=== PATIENT | male | born 1925 | race Caucasian/White ===

== ENCOUNTER → 2016-04-29 | Outpatient (CLI) | payer OTHER | LOC: BHFA 10:00 | PROVIDERS: ATTEND Internal Medicine Cardiovascular Disease | DX: R01.1 Cardiac murmur, unspecified (principal) ==

== ENCOUNTER 2017-05-13 02:33 | Observation (INO) | payer OTHER ==
--- NOTE | 2017-05-13 02:50 | EDPHY ---
H & P Time Seen by Provider: 05/13/17 02:46 HPI/ROS: Chief Complaint: Shortness of breath, cough HPI: 89-year-old male presenting with worsening shortness of breath over the last several days. Symptoms started when his had viral upper respiratory type symptoms. She was started on azithromycin several days ago. Patient started taking azithromycin 2 days ago but has been having worsening cough and difficulty breathing. He has a history of coronary artery disease and does take Lasix as needed for swelling. has noticed increased leg swelling for the last several days. This morning his breathing got worsening called EMS. On arrival patient was noted to have diffuse expiratory wheezing. EMS gave him an albuterol neb. Denies any fevers or chills. No chest pain. ROS: 10 point Review of Systems is negative except as noted in the HPI. PMH: Coronary artery disease, likely CHF Social History: No smoking, no alcohol, no recreational drug use Family History: non-contributory Physical Exam: Gen: Awake, Alert, No Distress HEENT: Nose: no rhinorrhea Eyes: PERRLA, EOMI Mouth: Moist mucosa Neck: Supple, no JVD Chest: nontender, mild diffuse expiratory wheeze with by basilar crackles Heart: S1, S2 normal, no murmur Abd: Soft, non-tender, no guarding Back: no CVA tenderness, no midline tenderness Ext: 2+ pitting edema, non-tender Skin: no rash Neuro: CN II-XII intact, Sensation grossly intact, Strength 5/5 in bilateral upper and lower extremities - Personal History Tetanus Vaccine Date: > 5 years - Medical/Surgical History Hx Asthma: No Hx Chronic Respiratory Disease: No Hx Diabetes: No Hx Cardiac Disease: Yes Hx Renal Disease: No Hx Cirrhosis: No Hx Alcoholism: No Hx HIV/AIDS: No Hx Splenectomy or Spleen Trauma: No Other PMH: HX: HAVASUPAI, STROKE, CARDIAC STENTS, SDH, HTN - Social History Smoking Status: Former smoker Constitutional: Initial Vital Signs Temperature (C) 37.7 C 05/13/17 02:40 Heart Rate 77 05/13/17 02:40 Respiratory Rate 24 H 05/13/17 02:40 Blood Pressure 171/75 H 05/13/17 02:40 O2 Sat (%) 99 05/13/17 02:40 O2 Delivery Mode Non-Rebreather Mask Allergies/Adverse Reactions: No Known Allergies Allergy (Unverified 05/13/17 03:03) Home Medications: Medication Instructions Recorded Propranolol Sr [Inderal LA 60mg 60 mg PO HS 06/29/13 (*)] busPIRone [Buspar (*)] 10 mg PO HS 06/29/13 Aspirin EC [Aspirin EC 325 mg (*)] 325 mg PO DAILY 07/20/13 Clopidogrel Bisulfate [Clopidogrel] 75 mg PO DAILY18 07/20/13 Multivitamins [Multivitamin (*)] 1 each PO DAILY18 07/20/13 Propranolol HCl [Inderal 10mg (*)] 5 mg PO DAILY PRN 07/20/13 cycloSPORINE 0.05% [Restasis Opht 1 drop EACHEYE BID@,07/20/13 Drops(*)] Acetaminophen [Tylenol ES 500 mg 500 mg PO Q6@04,,16,09/21/14 (*)] Elvis-128 5% Eyedrop 1 drop LEFTEYE BID@10,09/21/14 Ranibizumab [Lucentis] 0.5 mg IO Q30D 09/21/14 amLODIPine BESYLATE [Norvasc 5 mg 5 mg PO DAILY18 09/21/14 (*)] busPIRone [Buspar (*)] 5 mg PO DAILY PRN 09/21/14 traMADol [Ultram 50 mg (*)] 50 mg PO Q6@04,10,16,09/21/14 Eliquis 2.5 mg PO BID 02/02/16 Medical Decision Making - Diagnostics EKG Interpretation: ECG time 2:55 a.m., atrial fibrillation with a ventricular rate of 85, mild ST elevation in V2 which is not contiguous. No other acute ischemic changes. ED Course/Re-evaluation: 89-year-old presenting congestive heart failure. Chest x-ray is consistent with this. BNP is 6000. I have given 40 mg of Lasix IV. Will admit to the hospitalist for further evaluation. - Data Points Laboratory Results: Laboratory Results 05/13/17 02:45 05/13/17 02:45 05/13/17 05/13/17 02:45 02:45 WBC 4.57 10^3/uL 10^3/uL (3.80-9.50) RBC 3.44 10^6/uL L 10^6/uL (4.40-6.38) Hgb 10.8 g/dL L g/dL (13.7-17.5) Hct 32.6 % L % (40.0-51.0) MCV 94.8 fL fL (81.5-99.8) MCH 31.4 pg pg (27.9-34.1) MCHC 33.1 g/dL g/dL (32.4-36.7) RDW 13.9 % % (11.5-15.2) Plt Count 149 10^3/uL L 10^3/uL (150-400) MPV 10.1 fL fL (8.7-11.7) Neut % (Auto) 78.4 % H % (39.3-74.2) Lymph % (Auto) 10.3 % L % (15.0-45.0) [place] % (Auto) 10.3 % % (4.5-13.0) Eos % (Auto) 0.2 % L % (0.6-7.6) Baso % (Auto) 0.4 % % (0.3-1.7) Nucleat RBC Rel Count 0.0 % % (0.0-0.2) Absolute Neuts (auto) 3.58 10^3/uL 10^3/uL (1.70-6.50) Absolute Lymphs (auto) 0.47 10^3/uL L 10^3/uL (1.00-3.00) Absolute Monos (auto) 0.47 10^3/uL 10^3/uL (0.30-0.80) Absolute Eos (auto) 0.01 10^3/uL L 10^3/uL (0.03-0.40) Absolute Basos (auto) 0.02 10^3/uL 10^3/uL (0.02-0.10) Absolute Nucleated RBC 0.00 10^3/uL 10^3/uL (0-0.01) Immature Gran % 0.4 % % (0.0-1.1) Immature Gran # 0.02 10^3/uL 10^3/uL (0.00-0.10) Sodium 141 mEq/L mEq/L (135-145) Potassium 4.3 mEq/L mEq/L (3.5-5.2) Chloride 103 mEq/L mEq/L (97-110) Carbon Dioxide 22 mEq/l mEq/l (22-31) Anion Gap 16 mEq/L mEq/L (8-16) BUN 26 mg/dL H mg/dL (7-23) Creatinine 1.1 mg/dL mg/dL (0.7-1.3) Estimated GFR > 60 Glucose 91 mg/dL mg/dL (70-100) Calcium 9.0 mg/dL mg/dL (8.5-10.4) Troponin I 0.020 ng/mL ng/mL (0.000-0.034) NT-Pro-B Natriuret Pep 5900 pg/mL H pg/mL (0-450) Departure - Departure Disposition: [facility] Inpatient Acute Clinical Impression: Acute exacerbation of congestive heart failure Condition: Fair Referrals: Patient,NotPresent [Primary Care Provider] - As per Instructions
[2017-05-13 02:55] LABS: PLATELET COUNT 149 10^3/uL (150-400)
--- NOTE | 2017-05-13 02:58 | CPEKG ---
Heart Rate: 85 RR Interval: 706 QRSD Interval: 88 QT Interval: 376 QTC Interval: 447 QRS Independence: -28 T Wave Independence: 77 EKG Severity - ABNORMAL ECG - EKG Impression: ATRIAL FIBRILLATION EKG Impression: BORDERLINE LEFT AXIS DEVIATION EKG Impression: CONSIDER ANTEROSEPTAL INFARCT Electronically Signed By: Tae Mccollum 13-May-2017 05:07:18
[2017-05-13] MEDS ORDERED: FUROSEMIDE 40 MG/4 ML VIAL IVP ONE (03:21)
[2017-05-13] MEDS ORDERED: ACETAMINOPHEN 325 MG TAB PO PRN (03:31)
[2017-05-13] MEDS ORDERED: ONDANSETRON DISINTEGRATING 4 MG TAB PO PRN (03:31)
[2017-05-13] MEDS ORDERED: ONDANSETRON 4 MG/2 ML VIAL IVP PRN (03:31)
[2017-05-13] MEDS ORDERED: ALBUTEROL 3 ML DEYVIAL IH PRN (03:49)
--- NOTE | 2017-05-13 04:06 | PDGENHP ---
History and Physical - Chief Complaint Shortness of breath - History of Present Illness 89 yo M w/ hx of CAD, AF, CVA, and HTN presents with shortness of breath. Patient first began to feel fatigued about 5 days prior to presentation. His had a significant URI during this period. 2 days prior to presentation he noticed wheezing and developing shortness of breath. Additionally, he complains of congestion and low grade fever (100.1). He denies orthopnea or increased leg swelling. We was started on azithromycin yesterday but presented to ED today due to progressive shortness of breath. Work-up in the ED notable for normal WBC, elevated BNP, and CXR with mild pulmonary edema. Patient is being admitted for further work-up and treatment. History Information - Allergies/Home Medication List Allergies/Adverse Reactions: No Known Allergies Allergy (Unverified 05/13/17 03:03) Home Medications: Propranolol Sr [Inderal LA 60mg (*)] 60 mg PO HS 06/29/13 [Last Taken 02/01/16 23:00] busPIRone [Buspar (*)] 10 mg PO HS 06/29/13 [Last Taken 02/01/16 23:00] Aspirin EC [Aspirin EC 325 mg (*)] 325 mg PO DAILY 07/20/13 [Last Taken 23:00] Clopidogrel Bisulfate [Clopidogrel] 75 mg PO DAILY18 07/20/13 [Last Taken 23:00] Multivitamins [Multivitamin (*)] 1 each PO DAILY18 07/20/13 [Last Taken 09/19/14 ] Propranolol HCl [Inderal 10mg (*)] 5 mg PO DAILY PRN 07/20/13 [Last Taken 06:00] cycloSPORINE 0.05% [Restasis Opht Drops(*)] 1 drop EACHEYE BID@,07/20/13 [ Last Taken 02/01/16 23:00] Acetaminophen [Tylenol ES 500 mg (*)] 500 mg PO Q6@04,,,09/21/14 [Last Taken 02/01/16 23:00] Elvis-128 5% Eyedrop 1 drop LEFTEYE BID@,09/21/14 [Last Taken 02/01/16 23:00 ] Ranibizumab [Lucentis] 0.5 mg IO Q30D 09/21/14 [Last Taken 12/14/15 10:00] amLODIPine BESYLATE [Norvasc 5 mg (*)] 5 mg PO DAILY18 09/21/14 [Last Taken 07/12 20:00] busPIRone [Buspar (*)] 5 mg PO DAILY PRN 09/21/14 [Last Taken 01/26/16 12:00] traMADol [Ultram 50 mg (*)] 50 mg PO Q6@04,10,16,22 09/21/14 [Last Taken 23:00] Eliquis 2.5 mg PO BID 02/02/16 [Last Taken 02/02/16 12:00] I have personally reviewed and updated: family history, medical history - Past Medical History atrial fibrillation, coronary artery disease, CVA, hypertension - Surgical History Reports: coronary stent - Family History Positive for: stroke - Social History Smoking Status: Former smoker Review of Systems Review of Systems: ROS: 10pt was reviewed & negative except for what was stated in HPI & below Physical Exam Physical Exam: Temp Pulse Resp BP Pulse Ox 37.7 C 87 20 171/75 H 93 05/13/17 02:40 05/13/17 03:31 05/13/17 03:31 05/13/17 02:40 05/13/17 03:31 O2 (L/minute) 4 Constitutional: no apparent distress, not in pain Eyes: PERRL, EOMI Ears, Nose, Mouth, Throat: moist mucous membranes, no oral mucosal ulcers Cardiovascular: regular rate and rhythym, systolic murmur, JVD (JVP 1 cm above clavicle at 45 degrees), edema (1+ b/l AARTI) Respiratory: no respiratory distress, expiratory wheeze (Mild, end expiratory), inspiratory crackles (Bibasilar) Skin: warm, normal color Musculoskeletal: full muscle strength, no muscle tenderness Neurologic: AAOx3, CN II-XII Intact Psychiatric: interacting appropriately, not anxious Lab Data & Imaging Review 05/13/17 02:45 05/13/17 02:45 WBC 4.57 10^3/uL (3.80-9.50) 05/13/17 02:45 RBC 3.44 10^6/uL (4.40-6.38) L 03/17/18 02:45 Hgb 10.8 g/dL (13.7-17.5) L 05/13/17 02:45 Hct 32.6 % (40.0-51.0) L 05/13/17 02:45 MCV 94.8 fL (81.5-99.8) 05/13/17 02:45 MCH 31.4 pg (27.9-34.1) 05/13/17 02:45 MCHC 33.1 g/dL (32.4-36.7) 05/13/17 02:45 RDW 13.9 % (11.5-15.2) 05/13/17 02:45 Plt Count 149 10^3/uL (150-400) L 05/13/17 02:45 MPV 10.1 fL (8.7-11.7) 05/13/17 02:45 Neut % (Auto) 78.4 % (39.3-74.2) H 05/13/17 02:45 Lymph % (Auto) 10.3 % (15.0-45.0) L 05/13/17 02:45 [place] % (Auto) 10.3 % (4.5-13.0) 05/13/17 02:45 Eos % (Auto) 0.2 % (0.6-7.6) L 05/13/17 02:45 Baso % (Auto) 0.4 % (0.3-1.7) 05/13/17 02:45 Nucleat RBC Rel Count 0.0 % (0.0-0.2) 05/13/17 02:45 Absolute Neuts (auto) 3.58 10^3/uL (1.70-6.50) 05/13/17 02:45 Absolute Lymphs (auto) 0.47 10^3/uL (1.00-3.00) L 05/13/17 02:45 Absolute Monos (auto) 0.47 10^3/uL (0.30-0.80) 05/13/17 02:45 Absolute Eos (auto) 0.01 10^3/uL (0.03-0.40) L 05/13/17 02:45 Absolute Basos (auto) 0.02 10^3/uL (0.02-0.10) 05/13/17 02:45 Absolute Nucleated RBC 0.00 10^3/uL (0-0.01) 05/13/17 02:45 Immature Gran % 0.4 % (0.0-1.1) 05/13/17 02:45 Immature Gran # 0.02 10^3/uL (0.00-0.10) 05/13/17 02:45 Sodium 141 mEq/L (135-145) 05/13/17 02:45 Potassium 4.3 mEq/L (3.5-5.2) 05/13/17 02:45 Chloride 103 mEq/L (97-110) 05/13/17 02:45 Carbon Dioxide 22 mEq/l (22-31) 05/13/17 02:45 Anion Gap 16 mEq/L (8-16) 05/13/17 02:45 BUN 26 mg/dL (7-23) H 05/13/17 02:45 Creatinine 1.1 mg/dL (0.7-1.3) 05/13/17 02:45 Estimated GFR > 60 05/13/17 02:45 Glucose 91 mg/dL (70-100) 05/13/17 02:45 Calcium 9.0 mg/dL (8.5-10.4) 05/13/17 02:45 Troponin I 0.020 ng/mL (0.000-0.034) 05/13/17 02:45 NT-Pro-B Natriuret Pep 5900 pg/mL (0-450) H 05/13/17 02:45 Visualized and Interpreted Chest x-ray results: Yes Chest X-Ray results: other (Mild pulmonary edema) Visualized and Interpreted EKG results: Yes EKG Interpretation: Positive for: other (Afib, Q waves in anteroseptal leads) Assessment & Plan Assessment: 89 yo M w/ hx of CAD, AF, CVA, and HTN presents with shortness of breath likely from viral infection leading to mild CHF exacerbation. Plan: 1. Shortness of breath - I suspect this is multifactorial from viral URI ( wheezing on exam, congestion, and low grade fever on history) and mild volume overload (elevated BNP, pulmonary edema on CXR). WBC WNL, no evidence of sepsis physiology currently. - Albuterol PRN - Respiratory PCR, procalcitonin - Cardiac treatment as below 2. Suspected acute CHF exacerbation - Likely diastolic dysfunction in this 89 yo M w/ hx of CAD, AF , and HTN. BNP elevated and CXR with pulmonary congestion/ pulmonary edema. I suspect this mild exacerbation was triggered by viral infection detailed above. Patient does not take diuretics as outpatient and has no prior formal diagnosis of CHF. RAHEEL performed in 2015 revealed normal EF but did not comment on diastolic function. - S/p furosemide 40 mg IV x1 in ED - Will continue 20 mg IV BID as patient is essential furosemide naive - Cardiac diet, monitor I/Os, daily weights - TTE for further evaluation 3. AHRF - 2/2 likely viral URI and superimposed CHF exacerbation. Treatment for both as above. - Incentive spirometry, wean O2 as able 4. Hx CAD - Received cardiac stents by Dr. White in 2013. On ASA and plavix as outpatient; no chest pain currently. 5. Hx AF - In AF on admission, no longer taking AC. 6. Hx HTN - On amlodipine as outpatient. 7. 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 Diet - Cardiac Code - Full Ppx - LMWH Dispo - Admit under observation status to PCU
[2017-05-13] MEDS: ENOXAPARIN 40 MG/0.4 ML SYR SC SCH (09:29)
--- NOTE | 2017-05-13 11:05 | ECHO ---
[email or web address] [address] [address] Main: [phone] Fax: Transthoracic Echocardiogram Name: YASIR CHO MR#: [id number] Study Date: 05/13/2017 Study Time: 10:17 AM Date of : 1925 Age: 89 year(s) Height: 152.4 cm (60 in.) Weight: 69.85 kg (154 lb.) BSA: 1.67 m2 Gender: Male Examination: Echo Indication: CHF Image Quality: Adequate Contrast: Requested by: Artis Lizarraga BP: / Heart Rate: Rhythm: Indication: CHF Procedure Staff Online Retailer: Ronit Mckeon [facility] Reading Physician: Vic Crespo MD Requesting Provider: Conclusions: 1)Atrial fibrillation. 2)Normal LV size and systolic function with a LVEF of 65% and normal wall motions. 3)Moderate concentric LVH noted. 4)Moderate left atrial enlargement noted. 5)Moderate aortic valve sclerosis without . Trivial to mild AI noted. 6)Moderate MR without MV prolapse. 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 Measurements: Chambers Valvular Assessment AV/MV Valvular Assessment TV/PV Normal Normal Normal Name Value Range Name Value Range Name Value Range Ao Evelia (MM): 3.3 cm (2.2 cm-3.7 AV Vmax: 2.17 m/s (1 m/s-1.7 TR Vmax: 3.27 mm/s ( - ) cm) m/s) TR PGmax: 43 mmHg ( - ) IVSd (2D): 1.6 cm (0.6 cm-1.1 AV maxP mmHg ( - ) syst. PAP: 48 mmHg ( - ) cm) AV meanP mmHg ( - ) PV Vmax: 1.39 m/s (0.6 m/s-0.9 LVDd (2D): 3.8 cm (4.2 cm-5.9 LVOT Vmax: 1.27 m/s (0.7 m/s-1.1 m/s) cm) m/s) PV PGmax: 8 mmHg ( - ) LVDs (2D): 2.4 cm (2.1 cm-4 LALITA (Vmax): 1.8 cm2 ( - ) cm) LALITA (VTI): 1.9 cm ( - ) LVPWd (2D): 1.0 cm (0.6 cm-1 MV E Vmax: 1.24 m/s ( - ) cm) LVOTd 2.0 cm 2.0 cm mm LVEF (BP): 65 % (>=55 %) RVDd(2D): 2.7 cm (1.9 cm-3.8 cmmm) Continued Measurements: Chambers Valvular Assessment TV/PV Patient: YASIR CHO Study Date: 05/13/2017 Page 1 of 2 10:17 AM Name Value Name Value LADs: 4.5 cm CVP (est.): 5 mmHg LADs Lon.1 cm LA Area: 28.4 cm2 LA Volume: 91 ml LA Volume Index: 54.5 ml/m2 RA Area: 10.0 cm2 Findings: Left Ventricle: Normal size left ventricle. Moderate concentric LV hypertrophy. Normal global systolic LV function. EF is 65 %. No regional wall motion abnormality. Unable to assess diastolic dysfunction. Right Ventricle: Normal size right ventricle. Normal RV function. Left Atrium: The left atrium is moderately dilated. Right Atrium: The right atrium is normal in size. Mitral Valve: The mitral valve is normal in appearance and function. Mild-moderate mitral annular calcification. There is mild thickening of the mitral valve leaflets. No mitral stenosis is present. Moderate mitral valve regurgitation is present. Aortic Valve: The aortic valve is tri-leaflet and functions normally. Mild aortic cusp calcification is noted. Mean aortic valve gradient 12. Trivial calcific aortic valve stenosis. Trivial aortic valve regurgitation. Tricuspid Valve: The tricuspid valve is normal in appearance and function. Mild tricuspid regurgitation is present. Right ventricular systolic pressure measures 48mmHg. The pulmonary artery pressure is moderately increased. Pulmonic Valve: The pulmonic valve is normal in appearance and function. There is no pulmonic regurgitation seen. Aorta: The aorta is normal. Normal size aortic root measuring 3.3 cm. Pericardium: Trivial pericardial effusion. (No Signature Object) Patient: YASIR CHO Study Date: 05/13/2017 Page 2 of 2 10:17 AM [id number]
[2017-05-13] MEDS ORDERED: FUROSEMIDE 40 MG/4 ML VIAL IVP SCH (15:00)
[2017-05-13] MEDS: FUROSEMIDE 40 MG/4 ML VIAL IVP SCH (15:30)
[2017-05-13] MEDS ORDERED: PROPRANOLOL HCL 10 MG TAB PO PRN (17:17)
[2017-05-13] MEDS ORDERED: guaiFENesin/CODEINE PHOS 10 ML UDCUP PO PRN (17:17)
[2017-05-13] MEDS ORDERED: busPIRone 5 MG TAB PO PRN (17:17)
[2017-05-13] MEDS ORDERED: BENZONATATE 100 MG CAP PO PRN (17:17)
[2017-05-13] MEDS ORDERED: IPRATROPIUM/ALBUTEROL 3 ML DEYVIAL IH PRN (17:24)
--- NOTE | 2017-05-13 17:24 | HOSPPROG ---
Hospitalist Progress Note Assessment/Plan: Prolonged service in addition to the time originally spent on the history and physical by Dr. Oliveros, direct patient care, [id number] with the patient his , at bedside from 3:45 p.m. Until 4:20 p.m., 35 min, addressing the following: -physical exam demonstrated no expiratory wheezes, some very faint inspiratory wheezes bilaterally anteriorly, heart rhythm is irregularly irregular, with 1/6 systolic murmur at the sternum, trace bilateral lower extremity edema, no JVD, no abdominal distention or tenderness, alert awake oriented x3, patient is somewhat frustrated and feeling uncomfortable -most likely diagnosis is acute RSV viral syndrome complicated by acute diastolic congestive heart failure exacerbation -counseled the patient is that RSV is treated with supportive care, no antibiotics are indicated, and I doubt that there is a concomitant bacterial component given that the patient's white blood cell count is normal -counseled the patient that the diastolic CHF is most likely a concomitant condition, possibly in the setting of increased oral intake, and his echocardiogram demonstrates diastolic dysfunction with moderate mitral regurgitation but no focal wall motion abnormalities -consequently, will hold his home dosage of oral Lasix, utilize IV Lasix, continue to monitor his serum electrolytes, and monitor strict I&Os -he is not currently have an element of acute reactive airways, but he is certainly at high risk, and will continue him on as needed duo nebs, but hold on any prednisone -he has chronic coronary artery disease but is not currently having any chest pain, will continue him on his home antihypertensives and other medications -I counseled the patient is regarding course of treatment, length of stay, and reassured him that we will reassess his condition daily to determine whether he requires ongoing hospitalization Objective: Vital Signs Temp Pulse Resp BP Pulse Ox 37.3 C 76 16 154/70 H 97 05/13/17 16:02 05/13/17 16:02 05/13/17 16:02 05/13/17 16:02 05/13/17 16:02 Microbiology 05/13/17 04:00 Respiratory Panel (PCR) - Final Nasal, Sinus - Swab Respiratory Syncytial Virus ICD10 Worksheet Patient Problems: Problems Problem Status Onset Exertional dyspnea Acute Elevated troponin Acute Chronic Disease Mgmt/Transitional Care Acute Atrial fibrillation Acute Acute exacerbation of congestive heart failure Acute
[2017-05-13] MEDS: guaiFENesin 600 MG TAB.ER PO SCH (21:00)
[2017-05-13] MEDS ORDERED: CLOPIDOGREL BISULFATE 75 MG TAB PO SCH (21:00)
[2017-05-13] MEDS ORDERED: PRAVASTATIN SODIUM 20 MG TAB PO SCH (21:00)
[2017-05-13] MEDS ORDERED: PROPRANOLOL SR 60 MG CAP PO SCH (21:00)
[2017-05-13] MEDS: traMADol 50 MG TAB PO SCH (21:00)
[2017-05-13] MEDS ORDERED: busPIRone 10 MG TAB PO SCH (21:00)
[2017-05-13] MEDS: cycloSPORINE 0.05% 30 DROPERETTE/BOX EACHEYE SCH (23:42)
[2017-05-13] MEDS: SODIUM CHLORIDE 5% 30 ML OPHT.BTL EACHEYE SCH (23:42)
[2017-05-14 04:18] LABS: PLATELET COUNT 164 10^3/uL (150-400)
[2017-05-14] MEDS: traMADol 50 MG TAB PO SCH ×2 (05:43→10:14)
[2017-05-14] MEDS ORDERED: LOSARTAN POTASSIUM 50 MG TAB PO SCH (09:00)
[2017-05-14] MEDS ORDERED: Herbals/Supplements -Info Only PO SCH (09:00)
[2017-05-14] MEDS ORDERED: ASPIRIN EC 325 MG TAB PO SCH (09:00)
[2017-05-14] MEDS ORDERED: PRESERVISION AREDS2 FORMULA EYE VIT 1 EACH PO SCH (09:00)
[2017-05-14] MEDS ORDERED: PANTOPRAZOLE SODIUM 40 MG TAB PO PRN (09:00)
[2017-05-14] MEDS: FUROSEMIDE 40 MG/4 ML VIAL IVP SCH ×2 (09:22→15:32)
[2017-05-14] MEDS: ENOXAPARIN 40 MG/0.4 ML SYR SC SCH (09:23)
[2017-05-14] MEDS: guaiFENesin 600 MG TAB.ER PO SCH (09:23)
[2017-05-14] MEDS: cycloSPORINE 0.05% 30 DROPERETTE/BOX EACHEYE SCH (09:23)
[2017-05-14] MEDS ORDERED: ALBUTEROL 60 PUFFS/8 GM MDI IH PRN (10:11)
[2017-05-14] MEDS: SODIUM CHLORIDE 5% 30 ML OPHT.BTL EACHEYE SCH (10:14)
[2017-05-14] MEDS ORDERED: predniSONE 20 MG TAB PO SCH (10:15)
[2017-05-14 12:42] VITALS: BP 119/67; PULSE 84; RESP 15; TEMP 98.5
--- NOTE | 2017-05-14 14:02 | ASMTCMCOM ---
CM Note CM Note Notes: 89yr old male admitted for SOB, CHF, possible RSV. He has a Hx of: CAD, Afib, CVA, HTN, hx of smoking. tx medically. May discharge today. No discharge needs anticipated. Date Signed: 05/14/2017 02:01 PM Electronically Signed By:Gloria Torres LCSW
--- NOTE | 2017-05-14 15:23 | PDHOMEO2F ---
Home Oxygen Face to Face Home Orders: I certify that a physician or a nurse practitioner or physician's recovery assistant has had a [id number] encounter with this patient on the date of this order due to the diagnosis listed, which relates to the primary reason the patient requires home oxygen. Alternative treatments have been tried, or considered, and deemed ineffective. It is anticipated that supplemental oxygen will result in improvement with treatment. Home oxygen qualifying diagnosis: Chronic diastolic CHF Home oxygen secondary diagnosis: Respiratory Syncytial Virus SpO2 on room air (%): 85 Frequency of home oxygen needed: with activity Home oxygen liters per minute: 2 Home oxygen delivery device: nasal cannula Concentrator: Yes E-tanks for mobility and back up: Yes If ordering portable O2, is the patient mobile in the home?: Yes I certify that, based on these findings, the home oxygen is medically necessary for this patient for the following length of time. Length of time home oxygen needed: 1 month
[2017-05-14 15:25] VITALS: O2SAT 86
--- NOTE | 2017-05-14 15:33 | PDDCSUM ---
Discharge Summary Discharge Summary: DISCHARGE SUMMARY FOLLOW-UP ITEMS: Reassess oxygen requirements DATE OF ADMISSION: 05/13/2017 DATE OF DISCHARGE: 05/14/2017 DISCHARGE DIAGNOSES: 1. Acute respiratory syncytial virus 2. Acute reactive airway exacerbation 3. Chronic diastolic congestive heart failure CONSULTATIONS: None PROCEDURES / IMAGING: Chest x-ray demonstrating no overt pneumonia, diffuse pulmonary infiltrates consistent with RSV CHIEF COMPLAINT: Acute shortness of breath general malaise SUBJECTIVE: Patient feels symptomatically improved PHYSICAL EXAM ON DISCHARGE: Systolic blood pressure is 120-140, heart rate 70, satting 85% on room air with activity, afebrile overnight, lungs demonstrate an expiratory wheeze bilaterally with faint expiratory bronchial breath sounds bilaterally, no inspiratory crackles, no lower extremity edema LABS ON DISCHARGE: Creatinine 1.1, liver panel unremarkable, potassium 3.7, white blood cell count 6200, hemoglobin 11.1 HOSPITAL COURSE BY PROBLEM: The patient presented with acute RSV viral syndrome which had triggered acute reactive airway exacerbation. He was treated supportively with prednisone, scheduled duo nebs, albuterol inhaler for cough and shortness of breath, mucolytics, antitussives. He had initially presented on antibiotics and these were discontinued as the precipitant was confirmed to be RSV and not bacterial. The patient did receive 24 hr of IV diuretics given a mild element of hypovolemia which could have contributed to his symptoms, but the diuretics were discontinued at time of discharge, as the patient most likely has an element of chronic diastolic congestive heart failure but no significant acute exacerbation. He was otherwise continued on all of his home medications. DISCHARGE MEDICATIONS: Please see official discharge medication reconciliation sheet in chart , continue home medications with the addition of albuterol inhaler as needed, Mucinex 600 mg twice daily for 4 days, prednisone 40 mg once daily for 4 days, Tessalon Perles as needed. DISCHARGE INSTRUCTIONS: Please follow up with primary care provider this week for reassessment.
== END 2017-05-14 17:01 | disposition home or self-care (01) ==
LOC: EDUNIT# → INTOOBSV 03:27 → F2W 13:45
PROVIDERS: ADMIT Student in an Organized Health Care Education/Training Program; ATTEND Internal Medicine
DX: J45.901 Unspecified asthma with (acute) exacerbation (principal); B97.4 Respiratory syncytial virus as the cause of diseases classified elsewhere; I50.32 Chronic diastolic (congestive) heart failure; J96.01 Acute respiratory failure with hypoxia; I25.10 Atherosclerotic heart disease of native coronary artery without angina pectoris; Z95.5 Presence of coronary angioplasty implant and graft; I11.0 Hypertensive heart disease with heart failure; I48.91 Unspecified atrial fibrillation; Z86.73 Personal history of transient ischemic attack (TIA), and cerebral infarction without residual deficits; Z87.891 Personal history of nicotine dependence
CPT/HCPCS: 71046; 93005; 93306; G0378; J1650; J1940; J7512; J7613

== ENCOUNTER → 2017-08-15 | Outpatient (CLI) | payer OTHER | LOC: BMCIMAGING 16:25 | PROVIDERS: ATTEND Internal Medicine | DX: I51.7 Cardiomegaly (principal); J98.4 Other disorders of lung | CPT/HCPCS: 82607-90 ==

== ENCOUNTER → 2017-08-18 | Outpatient (CLI) | payer OTHER | LOC: BHFA 15:15 | PROVIDERS: ATTEND Internal Medicine Interventional Cardiology | DX: I25.10 Atherosclerotic heart disease of native coronary artery without angina pectoris (principal); I48.91 Unspecified atrial fibrillation; Z95.5 Presence of coronary angioplasty implant and graft; I10 Essential (primary) hypertension ==